=== PATIENT | female | born 1990 | race Caucasian/White ===

== ENCOUNTER 2020-03-22 09:16 | Emergency (ER) | payer OTHER, SELFPAY ==
--- NOTE | 2020-03-22 09:24 | XR_ITS ---
EXAMINATION: XR CHEST CLINICAL INFORMATION: SOB. History of asthma. COMPARISON: None TECHNIQUE: 2 views of the chest were obtained. FINDINGS: No significant abnormality is noted involving the heart, lungs, mediastinum, bony thorax or soft tissues. XR/XR chest 2V IMPRESSION: Unremarkable chest examination.
--- NOTE | 2020-03-22 09:24 | ECG_ITS ---
Test Reason : DIFFICULTY BREATHING Blood Pressure : / mmHG Vent. Rate : 080 BPM Atrial Rate : 080 BPM P-R Int : 106 ms QRS Dur : 090 ms QT Int : 386 ms P-R-T Axes : 061 060 053 degrees QTc Int : 445 ms Sinus rhythm with sinus arrhythmia with short NH Nonspecific ST abnormality Abnormal ECG When compared with ECG of 29-NOV-2015 14:57, Vent. rate has decreased BY 43 BPM T wave inversion no longer evident in Inferior leads Nonspecific T wave abnormality no longer evident in Anterolateral leads Referred By: Ariane Velazquez Electronically Signed By:Bharath Khan
[2020-03-22 10:33] LABS: Basophils Absolute Auto 0.1 X10*3/uL (0.0-0.2); Eosinophils Absolute Auto 0.4 X10*3/uL (0.0-0.4); Eosinophils Percent Auto 4.8 % (0-4); Hematocrit 42.8 % (37-47); Hemoglobin 14.3 g/dl (12.0-16.0); Imm Gran Abs Auto 0.03 X10*3/uL (0.00-0.03); Imm Gran Pct Auto 0.3 % (0.0-0.4); Lymphocytes Absolute Auto 1.5 X10*3/uL (1.2-4.9); Lymphocytes Percent Auto 17.3 % (20-40); MANUAL DIFF FLAG NO; Mean Corpuscular HGB Conc 33.4 g/dl (31.0-35.0); Mean Corpuscular Hemoglobin 29.5 pg (27.0-33.0); Mean Corpuscular Volume 88.2 fL (80-98); Mean Platelet Volume 10.4 fL (9.4-12.3); Monocytes Absolute Auto 0.5 X10*3/uL (0.1-1.2); Monocytes Percent Auto 5.3 % (2-11); Neutrophils Absolute Auto 6.2 X10*3/uL (2.0-8.3); Neutrophils Percent Auto 71.3 % (45-73); Platelet Count 320 X10*3/uL (160-400); Red Blood Count 4.85 X10*6/uL (4.20-5.50); Red Cell Distribution Width 13.4 % (11.0-16.0); White Blood Count 8.7 X10*3/uL (4.8-10.8)
[2020-03-22] MEDS: Albuterol Sulfate (0.083%) 2.5 MG/3 ML VIAL.NEB 10 MG INHALE (10:34)
[2020-03-22 10:35] VITALS: PULSE 81; O2SAT 98
--- NOTE | 2020-03-22 11:03 | ED_ITS ---
HPI - URI/Sore Throat General Stated Complaint: asthma Time Seen by Provider: 03/22/20 09:24 Source: patient Mode of arrival: ambulatory Limitations: no limitations History of Present Illness HPI Narrative: 30yoF c PMHx of asthma presenting to the ED c c/o dry cough c wheezing and sob for the past few days worse today despite using her albuterol inhalers and nebs at home. Denies any fevers, chills, dizziness, headaches, nausea/vomiting, chest pain, dyspnea on exertion, orthopnea or any other symptoms complaints or concerns. Denies any recent travel or sick contacts. Related Data Previous Rx's Medication Instructions Recorded albuterol sulfate 1 inh INHALATION QID PRN #18 g 03/22/20 azithromycin See Rx Instructions .ROUTE 03/22/20 .COMPLEX #6 tab prednisone 40 mg PO DAILY 5 Days #10 tab 03/22/20 Allergies Allergy/AdvReac Type Severity Reaction Status Date / Time cat dander [CAT] Allergy Mild ITCHING Unverified 12/23/19 15:45 dog dander [DOG] Allergy Mild ITCHING Unverified 12/23/19 15:45 cats Allergy Unknown Uncoded 11/03/19 00:00 dogs Allergy Unknown Uncoded 11/03/19 00:00 ragweed Allergy Unknown Uncoded 11/03/19 00:00 Review of Systems Review of Systems: Constitutional : denies med noncompliance, no history of PE or DVT, denies recent travel, No Fever, No Chills ENT/Mouth : No Hoarseness, No sore throat, No Rhinorrhea Eyes: No Redness, No Discharge, No Vision Changes Cardiovascular : No Chest Pain, + SOB, No Dyspnea on Exertion, No Edema, no pleurisy, Respiratory : + Cough, + Wheezing, No Sputum, no stridor, no hemoptysis, Gastrointestinal : No Nausea, No Vomiting, No Diarrhea, No abdominal Pain Genitourinary : No Dysuria, No Hematuria Musculoskeletal : No joint pain, No Myalgias Extremities: no extremity swelling /pain Skin : No rash, no itching, no swelling Neuro : No Weakness, No Numbness, No Headache Yes all other systems are reviewed and are negative PMFSH Past Medical History Attestation statement: The following information was validated with the patient. Physical Exam Vital Signs: Vital Signs: Last Vital Signs Pulse 81 03/22/20 10:35 vital signs have been reviewed as normal and appeared to be correct. Blood pressure normal. Heart rate normal. Respiration rate normal. Temperature normal. Oxygen saturation normal. Appearance: Alert. Oriented X3. Mild acute Respiratory distress. Head: Normal external exam. Normocephalic. Atraumatic. Eyes: PERRLA. EOMI. Conjunctiva and sclera normal. Eyelids normal. ENT: EAC normal. TM's Normal. Pharynx normal. Uvula midline. Moist mucous membranes. No trismus noted. No drooling noted. No muffled voice noted. Neck: Normal inspection. Neck supple. FROM. No adenopathy. Thyroid Normal. No meningeal signs. No neck mass noted. CVS: Normal heart rate and rhythm. Heart sound normal. No murmurs noted. Pulses normal throughout. Respiratory: Mild acute Respiratory distress. With decreased breath sounds with inspiratory and expiratory wheezing throughout with accessory muscle usage noted. No rales/rhonchi noted. Chest nontender. Back: Full range of motion noted. Skin: Skin warm and dry. Normal skin color. Normal skin turgor. No rashes/lesions/lacerations noted. Extremities: No lower extremity edema. No calf tenderness. Extremities exhibit normal range of motion. Extremities nontender. Neuro: Oriented X 3. No motor deficit. No sensory deficit. Reflexes normal. Course Course Course Narrative: 9:25am - 30yoF c PMHx of asthma presenting to the ED c c/o dry cough c wheezing and sob for the past few days worse today despite using her albuterol inhalers and nebs at home. - on exam patient is acute mild respiratory distress although oxygen saturation is 99-100% on room air although she is noted to be using accessory muscles and has inspiratory and expiratory wheezing throughout. - Concern for asthma exacerbation versus bronchitis versus pneumonia versus COVID versus flu versus viral syndrome. - Plan: Labs, CXR, EKG. Provide a L of IV fluids, an hour long breathing treatment with albuterol. 2 g of magnesium IV. 125 mg of Solu-Medrol. Then re-evaluate Reevaluation(s) Reevaluation #1: - Labs within normal limits. Chest x-ray negative for pneumonia. EKG normal sinus rhythm no acute ischemic changes noted. - I offered the patient admission although patient is refusing reports she feels much better. Will DC home with an albuterol inhaler, course of steroids and a work note along with instructions return if any new or worsening symptoms to follow-up with primary care provider. Patient understands agrees the plan. Time: 11:15 MDM - URI/Sore Throat Medical Records Attestation: I reviewed the patient's medical records. Lab Data Attestation: I reviewed the patient's lab results. Result diagrams: 03/22/20 09:25 Labs: Lab Results 03/22/20 Range/Units 09:25 WBC 8.7 (4.8-10.8) X10*3/uL RBC 4.85 (4.20-5.50) X10*6/uL Hgb 14.3 (12.0-16.0) g/dl Hct 42.8 (37-47) % MCV 88.2 (80-98) fL MCH 29.5 (27.0-33.0) pg MCHC 33.4 (31.0-35.0) g/dl RDW 13.4 (11.0-16.0) % Plt Count 320 (160-400) X10*3/uL MPV 10.4 (9.4-12.3) fL Immature Gran % (Auto) 0.3 (0.0-0.4) % Neut % (Auto) 71.3 (45-73) % Lymph % (Auto) 17.3 L (20-40) % [place] % (Auto) 5.3 (2-11) % Eos % (Auto) 4.8 H (0-4) % Baso % (Auto) 1.0 (0-2) % Lymph # (Auto) 1.5 (1.2-4.9) X10*3/uL [place] # (Auto) 0.5 (0.1-1.2) X10*3/uL Eos # (Auto) 0.4 (0.0-0.4) X10*3/uL Baso # (Auto) 0.1 (0.0-0.2) X10*3/uL Abs Immat Gran (auto) 0.03 (0.00-0.03) X10*3/uL Absolute Neuts (auto) 6.2 (2.0-8.3) X10*3/uL Absolute Nucleated RBC 0.000 (0.0-0.012) X10*3/uL Nucleated RBC % (auto) 0.0 (0.0-0.2) /100WBC Imaging Data Chest x-ray: Attestation: I personally reviewed and interpreted this imaging study as follows: Radiologist's impression: IMPRESSION: Unremarkable chest examination. ECG Data Attestation: I personally reviewed and interpreted this ECG as follows: ECG interpretation date: 03/22/20 ECG interpretation time: 09:57 Interpretation: Sinus rhythm with sinus arrhythmia with short pr interval. Nonspecific ST changes. No acute ischemic changes noted. No prior EKGs to compare to at this time. Critical Care Time Critical Care Time Critical Care Time: Yes Total Critical Care Time: 60 Attestation: I personally attest to this time spent taking care of the patient Discharge Plan Discharge Clinical Impression: Asthma exacerbation Patient Disposition: Home, Self-Care Instructions: Asthma (ED), Bronchospasm (ED) Prescriptions: New albuterol sulfate 90 mcg/actuation HFA aerosol inhaler 1 inh inhalation QID PRN (Reason: shortness of breath or wheezing) Qty: 18 RF: 3 azithromycin 250 mg tablet See Rx Instructions .ROUTE .COMPLEX Qty: 6 RF: 0 prednisone 20 mg tablet 40 mg PO DAILY 5 Days Qty: 10 RF: 0 Referrals: Physician,Unknown [Primary Care Provider] - 2 days (Your PCP) Stand Alone Forms: Work/School Release Print Language: Romanian
--- NOTE | 2020-03-22 11:03 | PC.NURSE ---
pt was seen and treated during Expanse down time. Please see paper documentation for visit history.
[2020-03-22 12:03] LABS: INTERNATIONAL NORM RATIO 1.1 (0.9-1.1)
[2020-03-22 12:25] LABS: Anion Gap 12 (12-20); Blood Urea Nitrogen 11 mg/dL (9-16); Carbon Dioxide 22 mmol/L (22-29); Chloride 106 mmol/L (96-108); Estimated Glomerular Filt Rate > 60; Glucose Random 106 mg/dL (60-115); Potassium 4.4 mmol/l (3.3-5.1); Sodium 136 mmol/L (135-145)
[2020-03-22 12:26] LABS: Calcium 8.4 mg/dL (8.4-10.2); Magnesium 1.9 mg/dL (1.6-2.6)
[2020-03-22 12:29] VITALS: BP 119/65; PULSE 87; RESP 15
[2020-03-22 13:49] LABS: Glucose Urine UA NEG (NEG); Leukocyte Esterase Urine NEG (NEG); Nitrite Urine NEG (NEG); PH 5.5 (5.0-8.0); Specific Gravity - Urine >= 1.030 (1.005-1.025); Urine Blood NEG (NEG); Urine Ketones 15 MG/DL (NEG); Urine Protein NEG (NEG-TRACE)
[2020-03-22 13:50] LABS: Appearance Urine CLEAR; Color Urine YELLOW
[2020-03-22 14:36] LABS: Influenza A PCR NEGATIVE (Negative); Influenza B PCR NEGATIVE (Negative); Resp Syncy Virus RNA Qual PCR NEGATIVE (Negative); SARS COV2 PCR INHOUSE NEGATIVE (Negative)
== END 2020-03-22 16:09 | disposition home or self-care (01) ==
LOC: HO.ED 11:39
PROVIDERS: Physician Assistant Medical; Emergency Provider Emergency Medicine
DX: J45.901 Unspecified asthma with (acute) exacerbation (principal); Z20.828 Contact with and (suspected) exposure to other viral communicable diseases; Z79.899 Other long term (current) drug therapy
CPT/HCPCS: 0241U; 36415; 71046; 80048; 81003; 83735; 85025; 85610; 93005; 94644; 99281; 99291

== ENCOUNTER 2021-07-20 20:25 | Emergency (ER) | payer OTHER, SELFPAY ==
--- NOTE | ~2021-07-20 | XR_ITS ---
EXAMINATION: XR CHEST CLINICAL INFORMATION: Cough. Asthma. COMPARISON: 03/22/2020 TECHNIQUE: 2 views of the chest were obtained. FINDINGS: Notable peribronchial thickening. Increased perihilar markings. No significant abnormality is otherwise noted involving the heart, lungs, mediastinum, bony thorax or soft tissues. XR/XR chest 2V IMPRESSION: Changes of nonspecific airway disease including asthma.
[2021-07-20 21:14] VITALS: BP 116/76; PULSE 112; RESP 14; TEMP 38; O2SAT 95; BMI 43.9
[2021-07-20 21:38] LABS: Influenza A Negative (Negative); Influenza B2 Negative (Negative)
[2021-07-20 21:39] LABS: COVID-19 Test Negative (Negative)
[2021-07-20] MEDS: Acetaminophen 325 MG TABLET 975 MG PO (22:58)
--- NOTE | 2021-07-20 23:17 | ED_ITS ---
HPI - Asthma General Chief Complaint: Fever Stated Complaint: Fever/Bodyaches/Chest tightness/Cough Time Seen by Provider: 07/20/21 22:38 Source: patient Mode of arrival: ambulatory History of Present Illness HPI Narrative: 31-year-old female with increasing shortness of breath and history of asthma presents with complaints of fever, body aches but states that she has had increased difficulty with breathing but denies any GI or symptoms. Related Data Previous Rx's Medication Instructions Recorded albuterol sulfate 90 mcg/actuation 1 inh INHALATION QID PRN #18 g 03/22/20 aerosol inhaler azithromycin 250 mg tablet See Rx Instructions .ROUTE 03/22/20 .COMPLEX #6 tab prednisone 20 mg tablet 40 mg PO DAILY 5 Days #10 tab 03/22/20 prednisone 50 mg tablet 50 mg PO DAILY 4 Days #4 tab 07/21/21 Allergies Allergy/AdvReac Type Severity Reaction Status Date / Time cat dander [CAT] Allergy Mild ITCHING Unverified 12/23/19 15:45 dog dander [DOG] Allergy Mild ITCHING Unverified 12/23/19 15:45 cats Allergy Unknown Uncoded 11/03/19 00:00 dogs Allergy Unknown Uncoded 11/03/19 00:00 ragweed Allergy Unknown Uncoded 11/03/19 00:00 Review of Systems Review of Systems: Pertinent positives and negatives as stated in HPI 10 poi nt review of systems is otherwise negative. [facility] Past Medical History Source: nursing notes reviewed Social History Social History Advance Directives: No Advance Directives Information Provided: No Physical Exam Vital Signs: Vital Signs: Last Vital Signs Temp 100.4 F 07/20/21 21:14 Pulse 96 07/21/21 00:13 Resp 18 07/21/21 00:13 BP 116/76 07/20/21 21:14 Pulse Ox 95 07/20/21 21:14 BMI result Body Mass Index 43.9 VITAL SIGNS: Reviewed. GENERAL: Well developed, well nourished, in no acute distress. HEAD: Normocephalic/atraumatic EYES: PERRLA, EOMI EARS: Ext canals without abnormality, TMs non-bulging and non-erythematous NOSE: Nares patent bilateral OROPHARYNX: no oral lesions noted, posterior pharynx clear and erythema without noted tonsillar enlargement/erythema/exudates NECK: Supple, no adenopathy LUNGS: Decreased breath sounds bilaterally, tachypneic, expiratory wheeze wit hout retractions. SpO2<95> CARDIOVASCULAR: Regular rate and rhythm without noted murmurs ABDOMEN: Soft, non-tender, non-distended with bowel sounds. SKIN: Inspection of the skin reveals no rashes NEUROLOGIC: Alert and oriented x 4. Strength and sensation to light touch were grossly intact x 4. Course Course Course Narrative: 31-year-old female with history and clinical presentation consistent with bronchitis/ asthma exacerbation, influenza and COVID testing are negative and patient received combination analgesics for temperature control. Patient given hour long albuterol treatment and will be placed on a short course of steroids. all results and findings discussed with patient at bedside and she was discharged home in stable condition after 2 hour long albuterol treatments. MDM - Asthma Lab Data Labs: Lab Results 07/20/21 07/20/21 07/20/21 Range/Units 21:07 21:07 22:57 Urine Color Urine Appearance Urine pH (5.0-8.0) Ur Specific [place] (1.005-1.025) Urine Protein (NEG-TRACE) MG/DL Urine Glucose (UA) (NEG) MG/DL Urine Ketones (NEG) MG/DL Urine Blood (NEG) Urine Nitrite (NEG) Ur Leukocyte Esterase (NEG) Urine RBC (0) /HPF Urine WBC (0-4) /HPF Ur Squamous Epith Cells /LPF Urine Bacteria /LPF Granular Casts /LPF Urine Mucus /LPF Urine Test (NEGATIVE) COVID-19 (DEEP) Negative (Negative) COVID-19 Clin Com See Note Influenza Type A (PRICE) Negative (Negative) Influenza Type B (PRICE) Negative (Negative) Influenza A & B Note See Note S. pyogenes GrpA PRICE Negative (Negative) 07/20/21 07/20/21 Range/Units 23:11 23:11 Urine Color DK YELLOW Urine Appearance CLEAR Urine pH 6.0 (5.0-8.0) Ur Specific [place] >= 1.030 H (1.005-1.025) Urine Protein TRACE (NEG-TRACE) MG/DL Urine Glucose (UA) NEG (NEG) MG/DL Urine Ketones 15 (NEG) MG/DL Urine Blood TRACE (NEG) Urine Nitrite NEG (NEG) Ur Leukocyte Esterase NEG (NEG) Urine RBC 1-4 (0) /HPF Urine WBC 1-4 (0-4) /HPF Ur Squamous Epith Cells 2+ /LPF Urine Bacteria 2+ /LPF Granular Casts 1-4 /LPF Urine Mucus 2+ /LPF Urine Test NEGATIVE (NEGATIVE) COVID-19 (DEEP) (Negative) COVID-19 Clin Com Influenza Type A (PRICE) (Negative) Influenza Type B (PRICE) (Negative) Influenza A & B Note S. pyogenes GrpA PRICE (Negative) Discharge Plan Discharge Clinical Impression: Asthma exacerbation, Bronchitis Patient Disposition: Home, Self-Care Instructions: Asthma (ED), Acute Bronchitis (ED) Additional Instructions: 1. Resume all home medications as prescribed. 2. Complete the entire course of steroids that you have been prescribed. 3. It is important for you to set up an appointment with a primary care provider at your earliest convenience. Return to the ER for worsening symptoms. Prescriptions: New prednisone 50 mg tablet 50 mg PO DAILY 4 Days Qty: 4 0RF No Action albuterol sulfate 90 mcg/actuation HFA aerosol inhaler 1 inh inhalation QID PRN (Reason: shortness of breath or wheezing) Qty: 18 3RF azithromycin 250 mg tablet See Rx Instructions .ROUTE .COMPLEX Qty: 6 0RF Rx Instructions: take 500 mg today (day 1), then 250 mg for 4 days (days 2-5) prednisone 20 mg tablet 40 mg PO DAILY 5 Days Qty: 10 0RF Stand Alone Forms: Work/School Release
[2021-07-20 23:20] LABS: Appearance Urine CLEAR; Color Urine DK YELLOW; Glucose Urine UA NEG (NEG); Leukocyte Esterase Urine NEG (NEG); Nitrite Urine NEG (NEG); Specific Gravity - Urine >= 1.030 (1.005-1.025); UACC Culture Trigger NO; Urine Blood TRACE (NEG); Urine Ketones 15 MG/DL (NEG); Urine Protein TRACE MG/DL (NEG-TRACE)
[2021-07-20 23:23] LABS: UPreg QC Valid YES; Urine Pregnancy NEGATIVE (NEGATIVE)
[2021-07-20 23:24] LABS: IDNOW Serial# 08D9AD1C; Strep A Nucleic Acid Negative (Negative)
[2021-07-20 23:32] LABS: Bacteria Urine 2+ /LPF; Mucus Urine 2+ /LPF; Squamous Epithelial Cell Urine 2+ /LPF
[2021-07-21 00:13] VITALS: PULSE 96; RESP 18; O2SAT 95
[2021-07-21] MEDS: Albuterol Sulfate (0.083%) 2.5 MG/3 ML VIAL.NEB 10 MG INHALE ×2 (00:13→01:05)
[2021-07-21] MEDS: predniSONE 10 MG TABLET 50 MG PO (00:39)
--- NOTE | 2021-07-21 00:57 | PC.NURSE ---
PT ON MONITOR FOR BREATHING TREATMENT.
[2021-07-21] MEDS: Albuterol Sulfate 90 MCG 8 GM INHALER 1 PUFF INHALE (01:04)
== END 2021-07-21 02:45 | disposition home or self-care (01) ==
PROVIDERS: Emergency Provider Student in an Organized Health Care Education/Training Program
DX: J45.901 Unspecified asthma with (acute) exacerbation (principal); R50.9 Fever, unspecified; Z20.822 Contact with and (suspected) exposure to COVID-19; Z79.899 Other long term (current) drug therapy
CPT/HCPCS: 36415; 71046; 81001; 81025; 87502; 87635; 87651; 94640; 94644; 99284; 99285

== ENCOUNTER 2023-05-05 10:54 | Outpatient (REF) | payer OTHER, SELFPAY ==
[2023-05-05 11:15] VITALS: BMI 53.0
[2023-05-05 11:16] VITALS: BP 134/82; PULSE 72; RESP 18; TEMP 35.8; O2SAT 98
[2023-05-05 13:26] VITALS: BP 145/81; PULSE 71; O2SAT 95
== END 2023-05-05 10:55 | disposition home or self-care (01) ==
LOC: HO.MS 10:54
PROVIDERS: PCP Student in an Organized Health Care Education/Training Program; Visit Provider Ophthalmology
PROC: (CPT 67700; principal; 2023-05-05 14:00)
DX: H00.11 Chalazion right upper eyelid (principal)
CPT/HCPCS: 67700

== ENCOUNTER 2024-12-14 17:24 | Inpatient (IN) | payer OTHER, SELFPAY ==
[2024-12-14] VITALS (12 sets, daily range): BP systolic 125–162; BP diastolic 66–85; PULSE 97–130; RESP 20–35; TEMP 37.1–37.3; O2SAT 92–96; BMI 52.4
--- NOTE | ~2024-12-14 | XR_ITS ---
CLINICAL HISTORY: sob 1 view chest x-ray. Comparison: None Findings: The lungs are adequately expanded. No focal consolidation. No effusion or pneumothorax. Cardiac and mediastinal contours are within normal limits. No acute osseous abnormality Impression: No acute process. This document has been electronically signed by: Bucky Panchal MD on 12/14/2024 19:01:31
[2024-12-14] MEDS: Albuterol Sulfate 7.5 MG, Albuterol/Iprat 2.5/0.5MG 3 ML 3 ML INHALE (17:44)
--- NOTE | 2024-12-14 17:44 | ED_ITS ---
HPI - SOB/Dyspnea General Chief Complaint: Dyspnea Stated Complaint: hard time breathing Time Seen by Provider: 12/14/24 17:34 History of Present Illness HPI Narrative: Patient is a 34-year-old female with a history of asthma. Presented with shortness of breath coughing upper respiratory symptoms just prior to arrival. History of being intubated x2 the most recent about 4-5 years ago. History of being allergic to cats and dog patient has cats and dogs in the house. Patient is kids are recently sick with coughing upper respiratory symptoms. She was having some the same. Got much worse this evening. Came in for additional help. Related Data Previous Rx's ?Medication ?Instructions ?Recorded albuterol sulfate 90 mcg/actuation 1 inh inhalation QI D PRN shortness 03/22/20 aerosol inhaler of breath or wheezing #18 gr ams azithromycin 250 mg tablet See Rx Instructions PO .COM PLEX #6 03/22/20 tabs prednisone 20 mg tablet 40 mg (2 x 20 mg) PO DAILY r kevin 5 03/22/20 days #10 tabs prednisone 50 mg tablet 50 mg PO DAILY 4 days #4 tab s 07/21/21 Allergies Allergy/AdvReac Type Severity Reaction Status Date / Time cat dander (CAT) Allergy Mild ITCHING Verified 12/14/24 17:29 dog dander (DOG) Allergy Mild ITCHING Verified 12/14/24 17:29 ragweed Allergy Unknown Unknown Uncoded 12/14/24 17:29 Review of Systems 2 Review of Systems: Positive coughing congestion upper respiratory symptoms Yes all other systems are reviewed and are negative PMFSH Past Medical History Attestation statement: The following information was validated with the patient. Social History Social History Alcohol intake: never Smoked in Last 30 Days: No Use of substances other than those prescribed or required for medical reasons: Yes Substance Use Type: Marijuana Advance Directives: No Advance Directives Information Provided: No Patient : No Physical Exam 2 Exam: Exam: Appearance: Alert. Oriented X3. No acute distress. Eyes: Pupils equal, round and reactive to light. ENT: Pharynx normal. Neck: Normal inspection. Neck supple. No lymph nodes noted. No crepitus CVS: Normal heart rate and rhythm. Pulses normal. Normal S1 and S2 Respiratory: Increased work of breathing positive expiratory wheezes noted positive decreased breath sounds bilaterally Abdomen: Soft and nontender. No rigidity. No distention. good BS x4 Skin: Skin warm and dry. Normal skin color. Normal skin turgor. Extremities: No lower extremity edema. Neurovascular intact to all extremities. No Lacerations. No Rash Neuro: Oriented X 3. No motor deficit. No sensory deficit. Moving all extermities. No slurred speech Vital Signs: Vital Signs: Last Vital Signs Temp 98.7 F 12/14/24 21:50 Pulse 107 H 12/14/24 23:39 Resp 21 H 12/14/24 23:39 BP 131/70 12/14/24 23:39 Pulse Ox 94 12/14/24 23:39 O2 Del Method Nasal Cannula 12/14/24 23:39 O2 Flow Rate 6 12/14/24 23:39 BMI result Body Mass Index 52.4 Medications Administered Discontinued Medications Generic Name Dose Route Start Last Admin Trade Name Freq PRN Reason Stop Dose Admin Albuterol Sulfate 7.5 mg/ 0 mg 12/14/24 17:38 12/14/24 17:44 Albuterol/Ipratropium 3 ml INHALE 12/14/24 17:39 10 each ONCE ONE Administration Levalbuterol HCl 2.5 mg/ 0 mg 12/14/24 20:01 12/14/24 20:05 Ipratropium Canmer 0.5 mg INHALE 12/14/24 20:02 7.5 dose ONCE ONE Administration Hydromorphone HCl 0.5 mg 12/14/24 22:02 12/14/24 22:06 Hydromorphone Hcl 0.5 Mg/0.5 Ml Syringe IVPUSH 12/14/24 22:03 0.5 mg ONCE ONE Administration Protocol Magnesium Sulfate 2 gm in 50 mls @ 150 mls/hr 12/14/24 17:42 12/14/24 18:15 Magnesium Sulfate/H2o IV 12/14/24 18:01 Infused ONCE ONE Infusion Sodium Chloride 1,000 mls @ 999 mls/hr 12/14/24 17:45 12/14/24 18:49 Ns IV 12/14/24 18:45 Infused .Q1H1M MARTHA Infusion Levalbuterol HCl 3.75 mg 12/14/24 18:33 12/14/24 18:36 Levalbuterol Hcl 1.25 Mg/3 Ml Vial.Neb INHALE 12/14/24 18:34 3.75 mg ONCE ONE Administration Methylprednisolone Sodium Succinate 125 mg 12/14/24 17:42 12/14/24 17:47 Methylprednisolone Sod Succ 125 Mg/2 Ml Vial IVPUSH 12/14/24 17:43 125 mg ONCE ONE Administration Midazolam HCl 1 mg 12/14/24 19:50 12/14/24 19:58 Midazolam Hcl 2 Mg/2 Ml Vial IVPUSH 12/14/24 19:51 1 mg ONCE ONE Administration Medical Decision Making Medical Decision Making [facility] Narrative: Patient had a history of intubation in the past for asthma. Given continuous neb x2 steroid magnesium symptom finally improved. Less distress. On 2 L of oxygen. My interpretation patient's chest x-ray is grossly negative. test was negative. COVID flu RSV were all negative. Patient's case consulted by the medical team will admit for further evaluation. Currently in stable condition. Differential Diagnosis Differential Diagnoses: The differential diagnosis associated with the presentation includes Asthma, pneumonia, pneumothorax, PE Admission/Observation Consideration of admission/observation: Escalation of care including admission/observation considered Consult Healthcare Provider Management of the patient was discussed with: Hospitalist Lab Data [facility] Lab Attestation statement: I reviewed the patient's lab results. 12/14/24 18:00 12/14/24 18:00 Labs: Lab Results 12/14/24 Range/Units 18:00 WBC 13.2 H (4.8-10.8) X10*3/uL RBC 4.51 (4.20-5.50) X10*6/uL Hgb 12.9 (12.0-16.0) g/dl Hct 38.5 (37.0-47.0) % MCV 85.4 (80.0-98.0) fL MCH 28.6 (27.0-33.0) pg MCHC 33.5 (31.0-35.0) g/dl RDW 14.3 (11.0-16.0) % Plt Count 341 (160-400) X10*3/uL MPV 9.6 (9.4-12.3) fL Immature Gran % (Auto) 0.4 (0.0-0.4) % Neut % (Auto) 67.7 (45-73) % Lymph % (Auto) 22.4 (20-40) % [place] % (Auto) 5.4 (2-11) % Eos % (Auto) 3.6 (0-4) % Baso % (Auto) 0.5 (0-2) % Lymph # (Auto) 3.0 (1.2-4.9) X10*3/uL [place] # (Auto) 0.7 (0.1-1.2) X10*3/uL Eos # (Auto) 0.5 H (0.0-0.4) X10*3/uL Baso # (Auto) 0.1 (0.0-0.2) X10*3/uL Abs Immat Gran (auto) 0.05 H (0.00-0.03) X10*3/uL Absolute Neuts (auto) 8.9 H (2.0-8.3) x10*3/uL Absolute Nucleated RBC 0.000 (0.0-0.012) X10*3/uL Nucleated RBC % (auto) 0.0 (0.0-0.2) /100WBC Sodium 141 (135-145) mmol/L Potassium 3.6 (3.3-5.1) mmol/L Chloride 108 (96-108) mmol/L Carbon Dioxide 23 (22-29) mmol/L Anion Gap 14 (12-20) BUN 13 (9-16) mg/dL Creatinine 0.87 (0.5-1.4) mg/dL Estim Creat Clear Calc 115.8 Estimated GFR > 60 Random Glucose 120 H (60-115) mg/dL Calcium 8.6 (8.4-10.2) mg/dL Beta HCG, Quant < 2 mIU/mL Influenza Type A (PCR) NEGATIVE (Negative) Influenza Type B (PCR) NEGATIVE (Negative) RSV RNA Qual (PCR) NEGATIVE (Negative) SARS-CoV-2 RNA (RT-PCR) NEGATIVE (Negative) Independent Interpretation I performed an independent interpretation of an: EKG (Sinus heart rate is 120) and Plain X-Ray (Grossly negative for pneumonia pneumothorax) Radiology Impression Discussion of test interpretation with radiology: I have reviewed the radiologist's reading. Independent Historian Clinical information obtained from an independent historian. History obtained from or confirmed by: Other (Family) External Record Review External record reviewed: Inpatient record Chronic Conditions History of asthma Social Determinants Patient?s care significantly limited by Social Determinants of Health including: Problems related to primary support group Critical Care Time Critical Care Time Critical Care Time: Yes Total Critical Care Time: 40 Attestation: I have personally provided 40 minutes of critical care time exclusive of time spent on separately billable procedures. ?Time includes review of lab data, radiology results, discussion with consultants, and monitoring for potential decompensation. ?Interventions were performed as documented above Discharge Plan Discharge Clinical Impression: Asthma with exacerbation Patient Disposition: Admitted As Inpatient
[2024-12-14] MEDS: Magnesium Sulfate/H2O 2 GM/50 ML PIGGYBACK IV (17:47)
[2024-12-14 18:04] LABS: MANUAL DIFF FLAG NO
[2024-12-14 18:05] LABS: Hematocrit 38.5 % (37.0-47.0); Hemoglobin 12.9 g/dl (12.0-16.0); Imm Gran Abs Auto 0.05 X10*3/uL (0.00-0.03); Imm Gran Pct Auto 0.4 % (0.0-0.4); Lymphocytes Absolute Auto 3.0 X10*3/uL (1.2-4.9); Mean Corpuscular HGB Conc 33.5 g/dl (31.0-35.0); Mean Corpuscular Hemoglobin 28.6 pg (27.0-33.0); Mean Corpuscular Volume 85.4 fL (80.0-98.0); NRBC Abs Auto 0.000 X10*3/uL (0.0-0.012); NRBC Pct Auto 0.0 /100WBC (0.0-0.2); Platelet Count 341 X10*3/uL (160-400); Red Blood Count 4.51 X10*6/uL (4.20-5.50); White Blood Count 13.2 X10*3/uL (4.8-10.8)
--- OUTSIDE RECORDS SUMMARY | 2024-12-14 18:23 | XMS_ITS ---
[facility] Name [facility] Organization Unknown Care Team Organization Name Specialty Phone Email Start Date End Da te [facility] 02/12/2022 11/24/2023
[2024-12-14 18:30] LABS: Anion Gap 14 (12-20); Blood Urea Nitrogen 13 mg/dL (9-16); Calcium 8.6 mg/dL (8.4-10.2); Carbon Dioxide 23 mmol/L (22-29); Chloride 108 mmol/L (96-108); Creatinine Clr Calc Pharmacy 115.8; Estimated Glomerular Filt Rate > 60; Potassium 3.6 mmol/L (3.3-5.1); Sodium 141 mmol/L (135-145)
[2024-12-14 18:50] LABS: Resp Syncy Virus RNA Qual PCR NEGATIVE (Negative); SARS COV2 PCR INHOUSE NEGATIVE (Negative)
--- NOTE | 2024-12-14 19:52 | ECG_ITS ---
Test Reason : SOB Blood Pressure : */* mmHG Vent. Rate : 122 BPM Atrial Rate : 122 BPM P-R Int : 100 ms QRS Dur : 86 ms QT Int : 332 ms P-R-T Axes : 36 51 42 degrees QTcB Int : 473 ms Sinus tachycardia with short SD Septal infarct , age undetermined Abnormal ECG When compared with ECG of 22-Mar-2020 09:57, Vent. rate has increased by 42 bpm Nonspecific T wave abnormality now evident in Inferior leads Referred By: Candi Veloz Electronically Signed By: DONALD CORONADO MD
[2024-12-14] MEDS: levalbuterol HCL 2.5 MG, Ipratropium Bromide 0.5 MG INHALE (20:05)
--- NOTE | 2024-12-14 20:21 | PC.NURSE ---
Assumed care of pt, presents with shortness of breath, hx of asthma, was medicated [employer] with little relief, pt is alert and awake, pt is tachypneic and tachycardic provider is aware
[2024-12-15] VITALS (15 sets, daily range): BP systolic 119–144; BP diastolic 57–80; PULSE 81–107; RESP 15–32; TEMP 36.2–36.9; O2SAT 90–98
[2024-12-15] MEDS: Albuterol/Iprat 2.5/0.5MG 3 ML AMPUL.NEB INHALE ×6 (01:50→19:23)
[2024-12-15] MEDS: 0.9 % Sodium Chloride Flush 3 ML SYRINGE IVFLUSH ×3 (02:26→15:03)
--- NOTE | 2024-12-15 03:06 | P.HPHOSP_ITS ---
History of Present Illness Date of Service: 12/15/24 Chief Complaint: Shortness of breath 34-year-old female with a past medical history of asthma, elevated BMI; presented to the hospital with a chief complaint of shortness of breath. Patient mentions the past she has been having cough and shortness of breath. Reports her son was sick and subsequently she got sick. Denies any upper respiratory symptoms at the time of my entry. Over the course of the day her shortness of breath significantly progressed hence presented to the ER for further evaluation. Reports she has been having posttussive chest discomfort. Denies any nausea or vomiting. Denies any urinary symptoms. Patient reports that she has prior history of intubation secondary to acute asthma exacerbation about 8 years ago. Since then she has not been admitted to the hospital for asthma exacerbation until today. Review of all other systems is negative except mentioned above ER course: Per ER team, patient on presentation noted to be short of breath; noted bilateral wheezing; concern for acute asthma exacerbation. Given nebulizations and steroids. [facility] Social History Alcohol intake: never Patient Tobacco Use Status: Never used Tobacco Smoked in Last 30 Days: No Use of substances other than those prescribed or required for medical reasons: Yes Substance Use Type: Marijuana Advance Directives: No Advance Directives Information Provided: No Patient : No Meds Allergies Allergy/AdvReac Type Severity Reaction Status Date / Time cat dander (CAT) Allergy Mild ITCHING Verified 12/14/24 17:29 dog dander (DOG) Allergy Mild ITCHING Verified 12/14/24 17:29 ragweed Allergy Unknown Unknown Uncoded 12/14/24 17:29 Active Medications: Current Medications Acetaminophen (Acetaminophen 325 Mg Tablet) 650 mg PO Q6H PRN PRN Reason: Pain, Mild 1-3,fever,headache Albuterol/Ipratropium (Albuterol/Iprat 2.5/0.5mg 3 Ml Ampul.Neb) 3 ml INHALE Q4H PRN PRN Reason: Shortness of Breath/Wheezing Last Admin: 12/15/24 01:50 Dose: 3 ml Albuterol/Ipratropium (Albuterol/Iprat 2.5/0.5mg 3 Ml Ampul.Neb) 3 ml INHALE RQ6H WHILE AWAKE [facility] Benzonatate (Benzonatate 100 Mg Capsule) 100 mg PO TID PRN PRN Reason: Cough Calcium Carbonate (Calcium Carbonate 750 Mg Tab.Chew) 750 mg PO Q4H PRN PRN Reason: Heartburn Enoxaparin Sodium (Enoxaparin Sodium 60 Mg/0.6 Ml Syringe) 50 mg SUBCUT Q12H [facility] Magnesium Hydroxide (Milk Of Magnesia 30 Ml Oral.Susp) 30 ml PO DAILY PRN PRN Reason: Constipation Melatonin (Melatonin 3 Mg Tablet) 6 mg PO BEDTIME PRN PRN Reason: Insomnia Methylprednisolone Sodium Succinate (Methylprednisolone Sod Succ 40 Mg/Ml Vial) 40 mg IVPUSH Q6H [facility] Last Admin: 12/15/24 02:26 Dose: 40 mg Sodium Chloride (0.9 % Sodium Chloride Flush 3 Ml Syringe) 3 ml IVFLUSH QSHIFT [facility] Last Admin: 12/15/24 02:26 Dose: 3 ml Physical Exam 2 Vital Signs and Narrative: Vital Signs: Last Vital Signs Temp 98.7 F 12/14/24 21:50 Pulse 100 12/15/24 01:52 Resp 19 12/15/24 01:52 BP 124/57 L 12/15/24 00:37 Pulse Ox 94 12/15/24 00:37 O2 Del Method Nasal Cannula 12/15/24 00:37 O2 Flow Rate 2.5 12/15/24 00:37 BMI result Body Mass Index 52.4 Gen: Appears be in no acute distress HEENT: NCAT, Moist mucosa. Pulmonary: Good air entry. Bilateral wheezing present. CVS: Normal S1-S2 Abdomen: BS+, Soft, Nontender Extremities: Warm well perfused Neuro: Alert and awake. Results Labs 12/14/24 18:00 12/14/24 18:00 Labs: Laboratory Results - last 24 hr 12/14/24 18:00 MCV 85.4 MCH 28.6 MCHC 33.5 RDW 14.3 Plt Count 341 MPV 9.6 Immature Gran % (Auto) 0.4 Neut % (Auto) 67.7 Lymph % (Auto) 22.4 Amelia % (Auto) 5.4 Eos % (Auto) 3.6 Baso % (Auto) 0.5 Lymph # (Auto) 3.0 Amelia # (Auto) 0.7 Eos # (Auto) 0.5 H Baso # (Auto) 0.1 Abs Immat Gran (auto) 0.05 H Absolute Neuts (auto) 8.9 H Absolute Nucleated RBC 0.000 Nucleated RBC % (auto) 0.0 Anion Gap 14 Estim Creat Clear Calc 115.8 Estimated GFR > 60 Random Glucose 120 H Calcium 8.6 Beta HCG, Quant < 2 Influenza Type A (PCR) NEGATIVE Influenza Type B (PCR) NEGATIVE RSV RNA Qual (PCR) NEGATIVE SARS-CoV-2 RNA (RT-PCR) NEGATIVE Assessment and Plan (1) Asthma with exacerbation: Qualifiers: Asthma persistence: unspecified Asthma severity: unspecified severity Qualified Code(s): J45.901 - Unspecified asthma with (acute) exacerbation Status: Acute Plan 34-year-old female with a past medical history of asthma, elevated BMI; presented to the hospital with a chief complaint of shortness of breath. Noted to be in acute asthma exacerbation. Acute asthma exacerbation: Continue nebulizations standing and p.r.n. Continue Solu-Medrol Continue azithromycin Supplemental oxygen p.r.n. Trending pulse oximetry and ready for discharge DVT prophylaxis: Lovenox Code status: Full code Quality Stroke Does the patient have a stroke diagnosis?: No VTE Prior VTE?: No VTE Risk Level:: Medical - moderate - high VTE Device Contraindication: Treatment Not Indicated VTE Drug Contraindication: N/A - Med Ordered
[2024-12-15 05:12] LABS: Hematocrit 41.5 % (37.0-47.0); Hemoglobin 13.3 g/dl (12.0-16.0); Imm Gran Abs Auto 0.10 X10*3/uL (0.00-0.03); Imm Gran Pct Auto 0.6 % (0.0-0.4); Lymphocytes Absolute Auto 0.6 X10*3/uL (1.2-4.9); MANUAL DIFF FLAG SCAN; Mean Corpuscular HGB Conc 32.0 g/dl (31.0-35.0); Mean Corpuscular Hemoglobin 27.9 pg (27.0-33.0); Mean Corpuscular Volume 87.0 fL (80.0-98.0); NRBC Abs Auto 0.000 X10*3/uL (0.0-0.012); NRBC Pct Auto 0.0 /100WBC (0.0-0.2); Platelet Count 364 X10*3/uL (160-400); Red Blood Count 4.77 X10*6/uL (4.20-5.50); SCAN SMEAR FLAG 1; White Blood Count 18.1 X10*3/uL (4.8-10.8)
[2024-12-15 05:30] LABS: Alanine Aminotransferase 15 U/L (0-31); Albumin Level 4.4 g/dL (3.5-5.0); Alkaline Phosphatase 68 U/L (39-117); Anion Gap 17 (12-20); Aspartate Amino Transferase 20 U/L (5-31); Blood Urea Nitrogen 12 mg/dL (9-16); Calcium 8.8 mg/dL (8.4-10.2); Carbon Dioxide 17 mmol/L (22-29); Chloride 107 mmol/L (96-108); Creatinine Clr Calc Pharmacy 132.5; Estimated Glomerular Filt Rate > 60; Potassium 4.7 mmol/L (3.3-5.1); Sodium 136 mmol/L (135-145); Total Protein 8.3 g/dL (6.5-8.0)
[2024-12-15 06:22] LABS: Venous Blood Gas Refer to POC result
[2024-12-15 06:24] LABS: VBG HCO3 17 mmol/L (22-26); VBG O2 % Saturation 81.0 %
[2024-12-15 07:24] LABS: Glucose, Whole Blood 217 mg/dL (60-115)
--- NOTE | 2024-12-15 09:00 | PC.NURSE ---
assumed care of pt at 0645. pt a&ox4. vss and up to date aside from remaining slightly tachypneic. no apparent respiratory distress. pt remains on 2L via NC at this time. completed breathing tx via RT w/ minimal relief. sitting upright eating breakfast. pending bed assignment. otherwise has no complaints. plan of care ongoing. call maya placed within reach.
--- NOTE | 2024-12-15 09:27 | PHA.MEDREC ---
Pharmacy Consult ? Medication Reconciliation Pharmacy has completed the medication reconciliation. Spoke to patient to confirm med list. Patient clearly stated that she is using advair diskus 250 mg 1 puff bid even though [facility] (patient's pharmacy per pt) said patient has not picked up the inhaler since last year.
--- NOTE | 2024-12-15 11:00 | PC.NURSE ---
Pt tachypnic with inspiratory wheeze throughout. Pt reports feeling tight . RT notified. Coming to assess pt and give PRN breathing treatment.
--- NOTE | 2024-12-15 12:56 | MHC.CM.PN ---
Pt. 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 She had a PCP at [facility] in [place], but that person is no longer there, so she will follow up to get a new PCP. She can arrange a ride home at [place], DCP: home, self care, CM to follow for DC needs.
--- NOTE | 2024-12-15 13:34 | P.PNIM_ITS ---
Subjective Subjective Date of Service: 12/15/24 Interval History: Minimal improvement overnight. Able to speak in full sentences Review of Systems Denies chest pain admits shortness of breath with minimal movement Denies nausea vomiting diarrhea Denies fever chills Physical Exam 2 Vital Signs: Vital Signs: Last Vital Signs Temp 98.1 F 12/15/24 12:12 Pulse 107 H 12/15/24 12:12 Resp 15 12/15/24 12:12 BP 124/71 12/15/24 12:12 Pulse Ox 97 12/15/24 12:12 O2 Del Method Room Air 12/15/24 12:12 O2 Flow Rate 2 12/15/24 10:52 BMI result Body Mass Index 52.4 Const: Other: Awake alert no acute distress Resp: Other: Diminished throughout with dense expiratory wheezes Cardio: Other: No S4; positive S1-S2; no S3 murmurs rubs or gallops GI: Other: Soft nontender nondistended normoactive bowel sounds Extrem: Other: No edema bilaterally Objective Data Active Medications Acetaminophen (Acetaminophen 325 Mg Tablet) 650 mg PO Q6H PRN PRN Reason: Pain, Mild 1-3,fever,headache Last Admin: 12/15/24 10:54 Dose: 650 mg Documented By: DEAN Albuterol/Ipratropium (Albuterol/Iprat 2.5/0.5mg 3 Ml Ampul.Neb) 3 ml INHALE Q4H PRN PRN Reason: Shortness of Breath/Wheezing Last Admin: 12/15/24 11:17 Dose: 3 ml Documented By: RIMA Albuterol/Ipratropium (Albuterol/Iprat 2.5/0.5mg 3 Ml Ampul.Neb) 3 ml INHALE RQ6H WHILE AWAKE [facility] Last Admin: 12/15/24 07:25 Dose: 3 ml Documented By: SARAI Azithromycin (Azithromycin 500 Mg Tablet) 500 mg PO DAILY [facility] Last Admin: 12/15/24 03:38 Dose: 500 mg Documented By: TOSHIA-MATTE Benzonatate (Benzonatate 100 Mg Capsule) 100 mg PO TID PRN PRN Reason: Cough Calcium Carbonate (Calcium Carbonate 750 Mg Tab.Chew) 750 mg PO Q4H PRN PRN Reason: Heartburn Enoxaparin Sodium (Enoxaparin Sodium 60 Mg/0.6 Ml Syringe) 50 mg SUBCUT Q12H [facility] Last Admin: 12/15/24 06:32 Dose: 50 mg Documented By: TOSHIA-JOSE Magnesium Hydroxide (Milk Of Magnesia 30 Ml Oral.Susp) 30 ml PO DAILY PRN PRN Reason: Constipation Melatonin (Melatonin 3 Mg Tablet) 6 mg PO BEDTIME PRN PRN Reason: Insomnia Methylprednisolone Sodium Succinate (Methylprednisolone Sod Succ 40 Mg/Ml Vial) 40 mg IVPUSH Q6H [facility] Last Admin: 12/15/24 12:40 Dose: 40 mg Documented By: DEAN Sodium Chloride (0.9 % Sodium Chloride Flush 3 Ml Syringe) 3 ml IVFLUSH QSHIFT [facility] Last Admin: 12/15/24 07:21 Dose: 3 ml Documented By: DEAN Labs 12/15/24 04:26 12/15/24 04:26 Labs: Laboratory Results - last 24 hr 12/14/24 12/15/24 12/15/24 18:00 04:26 06:20 MCV 85.4 87.0 MCH 28.6 27.9 MCHC 33.5 32.0 RDW 14.3 14.3 Plt Count 341 364 MPV 9.6 10.2 Immature Gran % (Auto) 0.4 0.6 H Neut % (Auto) 67.7 95.4 H Lymph % (Auto) 22.4 3.1 L [place] % (Auto) 5.4 0.7 L Eos % (Auto) 3.6 0.0 Baso % (Auto) 0.5 0.2 Lymph # (Auto) 3.0 0.6 L [place] # (Auto) 0.7 0.1 Eos # (Auto) 0.5 H 0.0 Baso # (Auto) 0.1 0.0 Abs Immat Gran (auto) 0.05 H 0.10 H Absolute Neuts (auto) 8.9 H 17.2 H Absolute Nucleated RBC 0.000 0.000 Nucleated RBC % (auto) 0.0 0.0 Smear Tech's Comments VERIFIED VBG pH 7.34 VBG pCO2 31 VBG pO2 56 VBG HCO3 17 L VBG O2 Saturation 81.0 VBG Base Excess -6.8 Anion Gap 14 17 Estim Creat Clear Calc 115.8 132.5 Estimated GFR > 60 > 60 POC Glucose Random Glucose 120 H 182 H Calcium 8.6 8.8 Total Bilirubin 0.2 AST 20 ALT 15 Alkaline Phosphatase 68 Total Protein 8.3 H Albumin 4.4 Beta HCG, Quant < 2 Influenza Type A (PCR) NEGATIVE Influenza Type B (PCR) NEGATIVE RSV RNA Qual (PCR) NEGATIVE SARS-CoV-2 RNA (RT-PCR) NEGATIVE 12/15/24 07:21 MCV MCH MCHC RDW Plt Count MPV Immature Gran % (Auto) Neut % (Auto) Lymph % (Auto) [place] % (Auto) Eos % (Auto) Baso % (Auto) Lymph # (Auto) [place] # (Auto) Eos # (Auto) Baso # (Auto) Abs Immat Gran (auto) Absolute Neuts (auto) Absolute Nucleated RBC Nucleated RBC % (auto) Smear Tech's Comments VBG pH VBG pCO2 VBG pO2 VBG HCO3 VBG O2 Saturation VBG Base Excess Anion Gap Estim Creat Clear Calc Estimated GFR POC Glucose 217 H Random Glucose Calcium Total Bilirubin AST ALT Alkaline Phosphatase Total Protein Albumin Beta HCG, Quant Influenza Type A (PCR) Influenza Type B (PCR) RSV RNA Qual (PCR) SARS-CoV-2 RNA (RT-PCR) Assessment and Plan (1) Asthma with exacerbation: Status: Acute Plan 34-year-old female with a past medical history of asthma, elevated BMI; presented to the hospital with a chief complaint of shortness of breath. Noted to be in acute asthma exacerbation. 1.Acute asthma exacerbation in backdrop of mild intermittent asthma -DuoNebs q.4 hours while awake -increase Solu-Medrol to 60 mg q.6 hours -azithromycin (1) -titrate O2 to maintain sats greater than or equal to 92% DVT prophylaxis: Lovenox Code status: Full code Quality Stroke Does the patient have a stroke diagnosis?: No VTE Prior VTE?: No VTE Risk Level:: Medical - moderate - high VTE Device Contraindication: Treatment Not Indicated VTE Drug Contraindication: N/A - Med Ordered
[2024-12-15] MEDS: Flu Vacc TS2025-26(6mo up)/PF 0.5 ML SYRINGE IM (15:01)
[2024-12-16] MEDS: 0.9 % Sodium Chloride Flush 3 ML SYRINGE IVFLUSH ×3 (00:05→20:10)
[2024-12-16 03:29] VITALS: BP 137/79; PULSE 77; RESP 20; TEMP 36.6; O2SAT 95
[2024-12-16 05:42] LABS: Hematocrit 39.0 % (37.0-47.0); Hemoglobin 13.0 g/dl (12.0-16.0); Imm Gran Abs Auto 0.32 X10*3/uL (0.00-0.03); Imm Gran Pct Auto 1.1 % (0.0-0.4); Lymphocytes Absolute Auto 0.9 X10*3/uL (1.2-4.9); MANUAL DIFF FLAG SCAN; Mean Corpuscular HGB Conc 33.3 g/dl (31.0-35.0); Mean Corpuscular Hemoglobin 28.4 pg (27.0-33.0); Mean Corpuscular Volume 85.2 fL (80.0-98.0); NRBC Abs Auto 0.000 X10*3/uL (0.0-0.012); NRBC Pct Auto 0.0 /100WBC (0.0-0.2); Platelet Count 374 X10*3/uL (160-400); Red Blood Count 4.58 X10*6/uL (4.20-5.50); SCAN SMEAR FLAG 1; White Blood Count 28.7 X10*3/uL (4.8-10.8)
[2024-12-16] MEDS: Albuterol/Iprat 2.5/0.5MG 3 ML AMPUL.NEB INHALE ×3 (06:07→20:02)
[2024-12-16 06:10] VITALS: PULSE 88; RESP 20; O2SAT 96
[2024-12-16 06:11] LABS: Alanine Aminotransferase 15 U/L (0-31); Albumin Level 4.1 g/dL (3.5-5.0); Alkaline Phosphatase 65 U/L (39-117); Anion Gap 12 (12-20); Aspartate Amino Transferase 17 U/L (5-31); Blood Urea Nitrogen 13 mg/dL (9-16); Calcium 9.2 mg/dL (8.4-10.2); Carbon Dioxide 25 mmol/L (22-29); Chloride 106 mmol/L (96-108); Creatinine Clr Calc Pharmacy 143.9; Estimated Glomerular Filt Rate > 60; Potassium 4.9 mmol/L (3.3-5.1); Sodium 138 mmol/L (135-145); Total Protein 7.7 g/dL (6.5-8.0)
[2024-12-16 07:29] VITALS: BP 124/57; PULSE 90; RESP 18; TEMP 36.1; O2SAT 96
[2024-12-16] MEDS: guaiFEN/Codeine SF 200/20/10ML 10 ML LIQUID PO ×2 (09:31→20:10)
--- NOTE | 2024-12-16 09:33 | PC.NURSE ---
Sats 96% on 3L NC weaned down to 2 L , will monitor
--- NOTE | 2024-12-16 13:59 | P.PNIM_ITS ---
Subjective Subjective Date of Service: 12/16/24 Interval History: No acute issues overnight. Patient notes improvement in breathing since admission Review of Systems Denies chest pain Admits shortness of breath with minimal movement Denies nausea vomiting diarrhea Denies fever chills Physical Exam 2 Vital Signs: Vital Signs: Last Vital Signs Temp 97.0 F 12/16/24 07:29 Pulse 90 12/16/24 07:29 Resp 18 12/16/24 07:29 BP 124/57 L 12/16/24 07:29 Pulse Ox 96 12/16/24 07:29 O2 Del Method Nasal Cannula 12/16/24 07:29 O2 Flow Rate 3 12/16/24 07:29 BMI result Body Mass Index 52.4 Const: Other: Awake alert no acute distress Resp: Other: Diminished at bases with improved aeration continues with dense expiratory wheezes Cardio: Other: No S4; positive S1-S2; no S3 murmurs rubs or gallops GI: Other: Soft nontender nondistended normoactive bowel sounds Extrem: Other: No edema bilaterally Objective Data Active Medications Acetaminophen (Acetaminophen 325 Mg Tablet) 650 mg PO Q6H PRN PRN Reason: Pain, Mild 1-3,fever,headache Last Admin: 12/16/24 09:28 Dose: 650 mg Documented By: DONNA Albuterol/Ipratropium (Albuterol/Iprat 2.5/0.5mg 3 Ml Ampul.Neb) 3 ml INHALE Q4H PRN PRN Reason: Shortness of Breath/Wheezing Last Admin: 12/15/24 11:17 Dose: 3 ml Documented By: RIMA Albuterol/Ipratropium (Albuterol/Iprat 2.5/0.5mg 3 Ml Ampul.Neb) 3 ml INHALE RQ6H WHILE AWAKE [facility] Last Admin: 12/16/24 13:07 Dose: 3 ml Documented By: DONNA Azithromycin (Azithromycin 500 Mg Tablet) 500 mg PO DAILY [facility] Last Admin: 12/16/24 07:54 Dose: 500 mg Documented By: DONNA Benzonatate (Benzonatate 100 Mg Capsule) 100 mg PO TID PRN PRN Reason: Cough Last Admin: 12/15/24 18:11 Dose: 100 mg Documented By: CHARLEY Calcium Carbonate (Calcium Carbonate 750 Mg Tab.Chew) 750 mg PO Q4H PRN PRN Reason: Heartburn Last Admin: 12/16/24 07:59 Dose: 750 mg Documented By: DONNA Enoxaparin Sodium (Enoxaparin Sodium 60 Mg/0.6 Ml Syringe) 50 mg SUBCUT Q12H [facility] Last Admin: 12/16/24 05:50 Dose: 50 mg Documented By: ARASH Guaifenesin/Codeine Phosphate (Guaifen/Codeine Sf 200/20/10ml 10 Ml Liquid) 10 ml PO Q4H PRN PRN Reason: Cough Last Admin: 12/16/24 09:31 Dose: 10 ml Documented By: DONNA Ibuprofen (Ibuprofen 600 Mg Tablet) 600 mg PO Q6H PRN PRN Reason: Pain, Moderate(Pain Scale 4-6) Last Admin: 12/15/24 16:53 Dose: 600 mg Documented By: CHARLEY Magnesium Hydroxide (Milk Of Magnesia 30 Ml Oral.Susp) 30 ml PO DAILY PRN PRN Reason: Constipation Melatonin (Melatonin 3 Mg Tablet) 6 mg PO BEDTIME PRN PRN Reason: Insomnia Last Admin: 12/15/24 20:27 Dose: 6 mg Documented By: SHAYE Methylprednisolone Sodium Succinate (Methylprednisolone Sod Succ 125 Mg/2 Ml Vial) 60 mg IVPUSH Q6H [facility] Last Admin: 12/16/24 13:07 Dose: 60 mg Documented By: DONNA Sodium Chloride (0.9 % Sodium Chloride Flush 3 Ml Syringe) 3 ml IVFLUSH QSHIFT [facility] Last Admin: 12/16/24 07:54 Dose: 3 ml Documented By: DONNA Labs 12/16/24 04:59 12/16/24 04:59 Labs: Laboratory Results - last 24 hr 12/16/24 04:59 MCV 85.2 MCH 28.4 MCHC 33.3 RDW 14.8 Plt Count 374 MPV 10.4 Immature Gran % (Auto) 1.1 H Neut % (Auto) 93.9 H Lymph % (Auto) 3.2 L [place] % (Auto) 1.7 L Eos % (Auto) 0.0 Baso % (Auto) 0.1 Lymph # (Auto) 0.9 L [place] # (Auto) 0.5 Eos # (Auto) 0.0 Baso # (Auto) 0.0 Abs Immat Gran (auto) 0.32 H Absolute Neuts (auto) 26.9 H Absolute Nucleated RBC 0.000 Nucleated RBC % (auto) 0.0 Smear Tech's Comments VERIFIED Anion Gap 12 Estim Creat Clear Calc 143.9 Estimated GFR > 60 Fasting Glucose 156 H Calcium 9.2 Total Bilirubin 0.2 AST 17 ALT 15 Alkaline Phosphatase 65 Total Protein 7.7 Albumin 4.1 Assessment and Plan (1) Asthma with exacerbation: Status: Acute Plan 34-year-old female with a past medical history of asthma, elevated BMI; presented to the hospital with a chief complaint of shortness of breath. Noted to be in acute asthma exacerbation. 1.Acute asthma exacerbation in backdrop of mild intermittent asthma -DuoNebs q.4 hours while awake -increase Solu-Medrol to 60 mg q.6 hours -azithromycin (2) -titrate O2 to maintain sats greater than or equal to 92% -add Robitussin with codeine for cough/tussive chest pain DVT prophylaxis: Lovenox Code status: Full code Quality Stroke Does the patient have a stroke diagnosis?: No VTE Prior VTE?: No VTE Risk Level:: Medical - moderate - high VTE Device Contraindication: Treatment Not Indicated VTE Drug Contraindication: N/A - Med Ordered
--- NOTE | 2024-12-16 15:42 | PC.NURSE ---
O2 sat on 1L NC was 95%. Oxygen discontinued . will monitor
[2024-12-16 16:00] VITALS: BP 134/73; PULSE 84; RESP 18; TEMP 36.2; O2SAT 95
[2024-12-16 19:55] VITALS: BP 110/53; PULSE 91; RESP 20; TEMP 36.6; O2SAT 94
[2024-12-16 20:02] VITALS: PULSE 88; RESP 20; O2SAT 95
[2024-12-17 03:17] VITALS: BP 135/75; PULSE 79; RESP 18; TEMP 36.2; O2SAT 94
[2024-12-17 05:31] VITALS: PULSE 70; RESP 18; O2SAT 94
[2024-12-17] MEDS: Albuterol/Iprat 2.5/0.5MG 3 ML AMPUL.NEB INHALE ×2 (05:31→08:31)
[2024-12-17] MEDS: guaiFEN/Codeine SF 200/20/10ML 10 ML LIQUID PO (05:42)
[2024-12-17 06:16] LABS: Alanine Aminotransferase 17 U/L (0-31); Albumin Level 4.2 g/dL (3.5-5.0); Alkaline Phosphatase 62 U/L (39-117); Anion Gap 14 (12-20); Aspartate Amino Transferase 15 U/L (5-31); Blood Urea Nitrogen 17 mg/dL (9-16); Calcium 9.2 mg/dL (8.4-10.2); Carbon Dioxide 24 mmol/L (22-29); Chloride 105 mmol/L (96-108); Creatinine Clr Calc Pharmacy 127.5; Estimated Glomerular Filt Rate > 60; Potassium 4.5 mmol/L (3.3-5.1); Sodium 138 mmol/L (135-145); Total Protein 7.9 g/dL (6.5-8.0)
[2024-12-17 06:17] LABS: Hematocrit 40.5 % (37.0-47.0); Hemoglobin 13.7 g/dl (12.0-16.0); Imm Gran Abs Auto 0.64 X10*3/uL (0.00-0.03); Imm Gran Pct Auto 2.6 % (0.0-0.4); Lymphocytes Absolute Auto 1.2 X10*3/uL (1.2-4.9); MANUAL DIFF FLAG SCAN; Mean Corpuscular HGB Conc 33.8 g/dl (31.0-35.0); Mean Corpuscular Hemoglobin 28.4 pg (27.0-33.0); Mean Corpuscular Volume 83.9 fL (80.0-98.0); NRBC Abs Auto 0.000 X10*3/uL (0.0-0.012); NRBC Pct Auto 0.0 /100WBC (0.0-0.2); Platelet Count 386 X10*3/uL (160-400); Red Blood Count 4.83 X10*6/uL (4.20-5.50); SCAN SMEAR FLAG 1; White Blood Count 24.4 X10*3/uL (4.8-10.8)
[2024-12-17 08:11] VITALS: BP 127/62; PULSE 76; RESP 16; TEMP 36.4; O2SAT 94
[2024-12-17] MEDS: 0.9 % Sodium Chloride Flush 3 ML SYRINGE IVFLUSH (08:13)
[2024-12-17 08:32] VITALS: PULSE 84; RESP 16; O2SAT 93
[2024-12-17] MEDS: Fluticasone/Vilanterol 100/25 BLST.W.DEV 1 PUFF INHALE (08:43)
[2024-12-17 08:46] VITALS: PULSE 84; RESP 16; O2SAT 93
--- NOTE | 2024-12-17 10:14 | MHC.CM.PN ---
pt dcd home self care prior to being seen by cm
--- NOTE | 2024-12-17 10:15 | P.DS_ITS ---
DS: Providers Provider Date of Service: 12/17/24 Date of admission: 12/14/24 23:58 Date of discharge: 12/17/24 Primary care physician: Unknown Physician DS: Diagnosis Discharge Diagnosis (1) Moderate persistent asthma with exacerbation: Status: Acute DS: Summary Hospital Course Hospital Course: From the history and physical by the admitting hospitalist, Bill Pro MD, 12/15/24: 34-year-old female with a past medical history of asthma, elevated BMI; presented to the hospital with a chief complaint of shortness of breath. Patient mentions the past she has been having cough and shortness of breath. Reports her son was sick and subsequently she got sick. Denies any upper respiratory symptoms at the time of my entry. Over the course of the day her shortness of breath significantly progressed hence presented to the ER for further evaluation. Reports she has been having posttussive chest discomfort. Denies any nausea or vomiting. Denies any urinary symptoms. Patient reports that she has prior history of intubation secondary to acute asthma exacerbation about 8 years ago. Since then she has not been admitted to the hospital for asthma exacerbation until today. Review of all other systems is negative except mentioned above ER course: Per ER team, patient on presentation noted to be short of breath; noted bilateral wheezing; concern for acute asthma exacerbation. Given nebulizations and steroids. She was admitted to the hospitalist service and treated with steroids and bronchodilators with symptomatic improvement. She was discharged on prednisone taper with albuterol inhaler and Duoneb nebulization solution, along with Breo as preventive inhaler. She should establish primary care as soon as possible and was also referred to [facility]. Time Attestation Discharge Coordination Time (in mins): 35 Quality: Safe Use of Opioids Does Pt have an Active Cancer Diagnosis on the Problem List?: No Quality: Stroke Does the patient have a stroke diagnosis?: No Physical Exam 2 Vital Signs: Vital Signs: Last Vital Signs Temp 97.6 F 12/17/24 08:11 Pulse 84 12/17/24 08:46 Resp 16 12/17/24 08:46 BP 127/62 12/17/24 08:11 Pulse Ox 94 12/17/24 08:11 O2 Del Method Room Air 12/17/24 08:11 O2 Flow Rate 1 12/16/24 16:00 BMI result Body Mass Index 52.4 Gen: in no acute distress HEENT: sclera anicteric, moist mucus membranes Neck: supple Lungs: clear to auscultation bilaterally Heart: regular rate and rhythm, no murmurs Abd: soft, non-tender, non-distended Ext: no edema Skin: warm/well-perfused Neuro: alert and oriented x3, no focal findings Psych: appropriate affect DS: Data Data Completed and Pending Completed studies during hospitalization [Text1]: Laboratory Results WBC 24.4 X10*3/uL (4.8-10.8) H 12/17/24 05:35 RBC 4.83 X10*6/uL (4.20-5.50) 12/17/24 05:35 Hgb 13.7 g/dl (12.0-16.0) 12/17/24 05:35 Hct 40.5 % (37.0-47.0) 12/17/24 05:35 MCV 83.9 fL (80.0-98.0) 12/17/24 05:35 MCH 28.4 pg (27.0-33.0) 12/17/24 05:35 MCHC 33.8 g/dl (31.0-35.0) 12/17/24 05:35 RDW 15.0 % (11.0-16.0) 12/17/24 05:35 Plt Count 386 X10*3/uL (160-400) 12/17/24 05:35 MPV 10.3 fL (9.4-12.3) 12/17/24 05:35 Immature Gran % (Auto) 2.6 % (0.0-0.4) H 12/17/24 05:35 Neut % (Auto) 90.8 % (45-73) H 12/17/24 05:35 Lymph % (Auto) 5.0 % (20-40) L 12/17/24 05:35 [place] % (Auto) 1.4 % (2-11) L 12/17/24 05:35 Eos % (Auto) 0.0 % (0-4) 12/17/24 05:35 Baso % (Auto) 0.2 % (0-2) 12/17/24 05:35 Lymph # (Auto) 1.2 X10*3/uL (1.2-4.9) 12/17/24 05:35 [place] # (Auto) 0.3 X10*3/uL (0.1-1.2) 12/17/24 05:35 Eos # (Auto) 0.0 X10*3/uL (0.0-0.4) 12/17/24 05:35 Baso # (Auto) 0.1 X10*3/uL (0.0-0.2) 12/17/24 05:35 Abs Immat Gran (auto) 0.64 X10*3/uL (0.00-0.03) H 12/17/24 05:35 Absolute Neuts (auto) 22.2 x10*3/uL (2.0-8.3) H 12/17/24 05:35 Absolute Nucleated RBC 0.000 X10*3/uL (0.0-0.012) 12/17/24 05:35 Nucleated RBC % (auto) 0.0 /100WBC (0.0-0.2) 12/17/24 05:35 Smear Tech's Comments VERIFIED 12/17/24 05:35 VBG pH 7.34 (7.32-7.43) 12/15/24 06:20 VBG pCO2 31 mmHg 12/15/24 06:20 VBG pO2 56 mmHg 12/15/24 06:20 VBG HCO3 17 mmol/L (22-26) L 12/15/24 06:20 VBG O2 Saturation 81.0 % 12/15/24 06:20 VBG Base Excess -6.8 mmol/L 12/15/24 06:20 Sodium 138 mmol/L (135-145) 12/17/24 05:35 Potassium 4.5 mmol/L (3.3-5.1) 12/17/24 05:35 Chloride 105 mmol/L (96-108) 12/17/24 05:35 Carbon Dioxide 24 mmol/L (22-29) 12/17/24 05:35 Anion Gap 14 (12-20) 12/17/24 05:35 BUN 17 mg/dL (9-16) H 12/17/24 05:35 Creatinine 0.79 mg/dL (0.5-1.4) 12/17/24 05:35 Estim Creat Clear Calc 127.5 12/17/24 05:35 Estimated GFR > 60 12/17/24 05:35 POC Glucose 217 mg/dL (60-115) H 12/15/24 07:21 Random Glucose 182 mg/dL (60-115) H 12/15/24 04:26 Fasting Glucose 163 mg/dL (60-99) H 12/17/24 05:35 Calcium 9.2 mg/dL (8.4-10.2) 12/17/24 05:35 Total Bilirubin 0.2 mg/dL (0.0-1.0) 12/17/24 05:35 AST 15 U/L (5-31) 12/17/24 05:35 ALT 17 U/L (0-31) 12/17/24 05:35 Alkaline Phosphatase 62 U/L (39-117) 12/17/24 05:35 Total Protein 7.9 g/dL (6.5-8.0) 12/17/24 05:35 Albumin 4.2 g/dL (3.5-5.0) 12/17/24 05:35 Beta HCG, Quant < 2 mIU/mL 12/14/24 18:00 Influenza Type A (PCR) NEGATIVE (Negative) 12/14/24 18:00 Influenza Type B (PCR) NEGATIVE (Negative) 12/14/24 18:00 RSV RNA Qual (PCR) NEGATIVE (Negative) 12/14/24 18:00 SARS-CoV-2 RNA (RT-PCR) NEGATIVE (Negative) 12/14/24 18:00 Discharge Plan Discharge Anticipated Discharge Date/Time: 12/17/24 09:54 Patient Disposition: Home, Self-Care Discharge Diagnosis: asthma exacerbation Referrals: [facility] [Provider Group, Internal Medicine] - 2 Weeks [facility] [Provider Group, Pulmonology] - 1 Month Discharge Medications: New ipratropium-albuterol 0.5 mg-3 mg(2.5 mg base)/3 mL Solution For Nebulization 3 ml inhalation Q4H PRN (Reason: Shortness Of Breath/Wheezing) Qty: 50 0RF fluticasone furoate-vilanterol [Breo Ellipta] 100-25 mcg/dose Blister With Device 1 inh inhalation RDAILY Qty: 30 0RF prednisone 10 mg tablet See Rx Instructions .ROUTE .COMPLEX Qty: 22 0RF Rx Instructions: 40 mg daily x 4 days, then 20 mg daily x 2 days, then 10 mg daily x 2 days, then stop Continued cetirizine 10 mg Tablet 10 mg PO DAILY Qty: 30 0RF Changed albuterol sulfate 90 mcg/actuation HFA aerosol inhaler 2 inh inhalation QID PRN (Reason: shortness of breath or wheezing) Qty: 8.5 0RF Discontinued fluticasone propion-salmeterol [Advair Diskus] 250-50 mcg/dose Blister With Device 1 inh INHALATION BID Discharge Orders: Discharge Order (Routine); Ordered 12/17/24 Ordered By: Derrick Vega Diet: Advance to usual diet Activity on Discharge: As tolerated Stand Alone Forms: Patient Portal Discharge page Print Language: Panamanian Care Plan Goals: lung health Health Concerns: asthma exacerbation Plan of Treatment: prednisone taper: 40 mg daily x 4 days, 20 mg daily x 2 days, 10 mg daily x 2 days, then stop albuterol nebulizer or inhaler as needed for rescue Breo as preventive inhaler continue cetirizine establish primary care as soon as possible Pulmnology referral do not smoke marijuana or other substances Return to the hospital if you experience recurrent or worsening symptoms. Assessment: See Discharge Summary.
[2024-12-17 11:37] VITALS: BP 137/70; PULSE 83; RESP 16; TEMP 36.7; O2SAT 94
--- NOTE | 2024-12-22 07:32 | P.CDIM_ITS ---
PROVIDER RESPONSE TEXT: To clarify, the appropriate diagnosis supported by the clinical indicators: Obesity Due to excess calories QUERY TEXT: PHYSICIAN'S DOCUMENTATION REQUEST Date of Query: 12/16/2024 08:43 AM EDT Patient Name: Elizabeth Delong Admit Date: 12/15/2024 Dear Modesto Hubbard DO, A review of the medical record indicates additional documentation may be needed. Please review below and update the documentation accordingly. Clinical Indicators: Height: ( ) 5'2 Weight: ( ) 130 kg BMI: ( ) 52.4 Other Clinical Notes Supporting Significance of the BMI: on therapeutic diet If possible, please provide an associated diagnosis related to the abnormal BMI, such as: Overweight Obesity Due to excess calories Obesity Drug induced Obesity Due to other cause Specify the other cause Severe or Morbid Obesity With alveolar hypoventilation Severe or Morbid Obesity Without alveolar hypoventilation BMI is not significant Other (explain) Clinically unable to determine (explain) Thank you, Ban Mondragon RN Use of terms such as suspected, likely, concern for, or probable (associated with a specific diagnosis that is being evaluated, monitored, or treated as if it exists) are acceptable and can be coded in the inpatient setting, when documented at the time of discharge. Please use your independent medical judgment in providing your response. THIS QUERY IS PART OF THE PERMANENT MEDICAL RECORD
== END 2024-12-17 11:37 | disposition home or self-care (01) | DRG 141 ==
LOC: HO.ED 22:43 → HO.EDOVER 12-15 00:03 → HO.S3 12-15 12:57
PROVIDERS: Hospitalist; Admitting Provider Hospitalist; Emergency Provider Emergency Medicine Emergency Medical Services; Visit Provider Family Medicine
DX: J45.21 Mild intermittent asthma with (acute) exacerbation (principal); Z68.43 Body mass index [BMI] 50.0-59.9, adult; E66.09 Other obesity due to excess calories; Z71.3 Dietary counseling and surveillance; Z20.822 Contact with and (suspected) exposure to COVID-19
CPT/HCPCS: 36415; 71045; 80048; 80053; 82803; 82947; 84702; 85025; 87637; 90656; 93005; 94640; 99221; 99285; J1171; J1650; J2250; J2270; J2919; J3475

== ENCOUNTER → 2024-12-14 17:43 | Outpatient (BNV) | payer OTHER, SELFPAY | PROVIDERS: Emergency Provider Emergency Medicine Emergency Medical Services; Visit Provider Radiology Vascular & Interventional Radiology | DX: R06.02 Shortness of breath (principal) | CPT/HCPCS: 71045 ==

== ENCOUNTER → 2024-12-14 19:52 | Outpatient (BNV) | payer OTHER, SELFPAY | PROVIDERS: Admitting Provider Hospitalist; Emergency Provider Emergency Medicine Emergency Medical Services; Visit Provider Internal Medicine Cardiovascular Disease | DX: R00.0 Tachycardia, unspecified (principal) | CPT/HCPCS: 93010 ==

== ENCOUNTER → 2024-12-14 23:58 | Outpatient (BNV) | payer OTHER, SELFPAY | PROVIDERS: Admitting Provider Hospitalist; Emergency Provider Emergency Medicine Emergency Medical Services; Visit Provider Hospitalist | DX: J45.901 Unspecified asthma with (acute) exacerbation (principal) | CPT/HCPCS: 99223; 99232; 99499 ==